=== PATIENT | female | born 1950 | race Caucasian/White ===

== ENCOUNTER → 2020-11-04 | Outpatient (CLI) | payer MEDICARE ==
[~2020-11-04] MED LIST: ATOR20TA86 PO; DICY10CA3 PO; METO-282 PO; ONDA4TAB13 PO; PANT40TA6 PO; POTA20TA6 PO
[2020-11-04 11:32] LABS: BASOPHILS % (AUTO) 1 % (0-1); EOSINOPHILS % (AUTO) 3 % (1-7); LYMPHOCYTES % (AUTO) 34 % (22-44); MEAN CORPUSCULAR HEMOGLOBIN 30.5 pg (27.0-34.8); MEAN CORPUSCULAR HGB CONC 32.5 g/dL (32.4-35.8); MONOCYTES % (AUTO) 7 % (2-9); NEUTROPHILS % (AUTO) 54 % (42-75); PLATELET COUNT 246 x10^3/uL (130-400); RED BLOOD COUNT 4.05 x10^6/uL (3.82-5.3); RED CELL DISTRIBUTION WIDTH 15.1 % (9.6-15.2)
[2020-11-04 12:02] LABS: ANION GAP 8 mmol/L (5-15); CALCIUM 9.7 mg/dL (8.5-10.1); CHLORIDE 112 mmol/L (98-107)
[2020-11-04 12:03] LABS: CREATININE 1.32 mg/dL (0.55-1.02)
== END | disposition home or self-care (01) ==
LOC: STAR 10:42
PROVIDERS: ATTEND Internal Medicine
DX: Z01.818 Encounter for other preprocedural examination (principal); K83.1 Obstruction of bile duct; R00.1 Bradycardia, unspecified; R94.31 Abnormal electrocardiogram [ECG] [EKG]
CPT/HCPCS: 36415; 80048; 85025; 93005

== ENCOUNTER 2020-11-10 05:28 | Day surgery (SDC) | payer MEDICARE ==
[~2020-11-10] VITALS: Ht 172.7 cm; Wt 41.8 kg
[~2020-11-10 05:28] MED LIST changes: +POTA-143 PO; -POTA20TA6 PO
[2020-11-10] MEDS ORDERED: CHLORHEXIDINE 15 ML UDC PO ONE (06:00)
[2020-11-10] MEDS ORDERED: LACTATED RINGERS 1,000 ML IV SCH (06:00)
[2020-11-10 06:02] VITALS: BP 109/73
[2020-11-10] MEDS ORDERED: PROPOFOL 50 ML ONE (07:21)
[2020-11-10] MEDS ORDERED: PROPOFOL 10 MG/ML, 20ML ONE (07:22)
[2020-11-10] MEDS ORDERED: EPHEDRINE 50 MG/ML, 1ML IVPush PRN (08:00)
[2020-11-10] MEDS ORDERED: EPHEDRINE 50 MG/ML, 1ML IM PRN (08:00)
[2020-11-10] MEDS ORDERED: FENTANYL PF 100 MCG/2ML IV PRN (08:00)
[2020-11-10] MEDS ORDERED: ONDANSETRON 2MG/ML, 2ML IVPush PRN (08:00)
[2020-11-10] MEDS ORDERED: morphine SULFATE 10 MG/ML, 1ML IVPush PRN (08:00)
[2020-11-10] MEDS ORDERED: LABETALOL 5MG/ML, 20ML IV PRN (08:00)
== END 2020-11-10 10:08 | disposition home or self-care (01) ==
LOC: OUT 05:28
PROVIDERS: ATTEND Internal Medicine Gastroenterology
DX: K83.1 Obstruction of bile duct (principal); E78.00 Pure hypercholesterolemia, unspecified; Z79.899 Other long term (current) drug therapy; Z98.890 Other specified postprocedural states; Z86.010 Personal history of colon polyps; Z87.891 Personal history of nicotine dependence
CPT/HCPCS: 43239; 43242; 88172; 88173; 88177; 88305; 88307; J2704

== ENCOUNTER 2020-12-15 10:22 | Day surgery (SDC) | payer MEDICARE ==
[~2020-12-15] VITALS: Ht 172.7 cm; Wt 45.5 kg
[2020-12-15 11:13] VITALS: BP 133/80
== END 2020-12-15 19:40 | disposition home or self-care (01) ==
LOC: OUT 10:22
PROVIDERS: ATTEND Internal Medicine Gastroenterology
DX: K83.1 Obstruction of bile duct (principal); K29.50 Unspecified chronic gastritis without bleeding; K44.9 Diaphragmatic hernia without obstruction or gangrene; R59.0 Localized enlarged lymph nodes; I47.1 Supraventricular tachycardia; E78.5 Hyperlipidemia, unspecified; Z20.822 Contact with and (suspected) exposure to COVID-19; Z79.899 Other long term (current) drug therapy; Z98.890 Other specified postprocedural states
CPT/HCPCS: 43239; 43242; 43261; 43274; 74328; 87635; 88108; 88305; 88342; C1769; C1894; C2625; J7120; Q9967